=== PATIENT | female | born 1965 | race Caucasian/White ===

== ENCOUNTER 2016-09-06 13:04 | Emergency (ER) | payer MEDICARE, OTHER ==
[~2016-09-06 13:04] MED LIST: ACETAMINOPHEN PO; ALBUTEROL17 GM INH; ALPRAZOLAM PO; ALPRAZOLAM1 MG PO; AMBIEN10 MG PO; AMOXICILLIN PO; AMOXICILLIN500 M1 PO; ASPIRIN ENTERI325 M1 PO; ATARAX PO; ATORVASTATIN CA80 MG PO; AUGMENTIN PO; AZATHIOPRINE50 M1 PO; AZATHIOPRINE50 M2 PO; BENADRYL PO; CEROVITE SILVER1 TA1 PO; CIPRO PO; CLINDAMYCIN HC300 MG PO; COLACE PO; COMBIVENT U/D3 ML INH; COUMADIN; COUMADIN PO; COUMADIN10 MG PO; COUMADIN5 MG PO; COUMADIN7.5 MG PO; DERMACORT1 GM; DOXYCYCLINE PO; DOXYCYCLINE150 MG PO; ELIMITE60 G1; ELIMITE60 GM TOP; ENOXAPARIN120 MG/0.1 SQ; FERRO-TIME325 MG PO; FLUOXETINE HCL20 M1 PO; GLUCOTROL PO; GLUCOTROL XL PO; HYDROCODON-ACE1 EAC5 PO; IMURAN50 MG PO; KCL; KEFLEX PO; KEFLEX500 M1 PO; KLOR-CON PO; LANTUS100 U/ML; LASIX; LASIX PO; LEVOTHROID75 MCG PO; LEVOTHYROXINE75 MCG PO; LEVOXYL PO; LIPITOR PO; LIPITOR80 MG PO; LISINOPRIL10 MG PO; LOPID600 MG PO; LORTAB 10-3251 EACH PO; LORTAB 10/500 T1 TAB PO; LORTAB 5/500 TA1 TA1 PO; LORTAB 7.5-5001 TAB PO; LORTAB ELIXIR15 ML PO; LOTRISONE CREAM45 GM TOP; MEDROL PO; MEPERIDINE HCL50 MG PO; MICRO-K10 MEQ PO; MUCINEX DM1 TAB.SR . PO; NORCO 10/3251 TAB PO; NORVASC; NORVASC PO; NORVASC10 MG PO; OMEPRAZOLE20 M1 PO; OMEPRAZOLE20 M2 PO; PEN-VEE K PO; PENICILLIN VK PO; PERCOCET 51 UDTAB 5/ PO; PHENERGAN25 MG PO; POTASSIUM CHLO10 ME1 PO; POTASSIUM CHLO10 MEQ PO; PREDNISONE; PREDNISONE PO; PROAIR HFA8.5 GM IH; PROAIR HFA8.5 GM INH; PROZAC; PROZAC PO; ROBAXIN 750750 MG PO; SYMBICORT INH; SYNTHROID PO; TAGAMET; TRAZODONE PO; ULTRAM PO; VITAMIN B-121000 MCG PO; VITAMIN B122500 MCG PO; XANAX1 MG PO; XANAX2 MG PO; XYZAL; XYZAL PO; ZANTAC PO; ZESTRIL10 MG PO; ZITHROMAX PO; ZOFRAN PO; ZOFRANODT PO
[2016-09-06] MEDS ORDERED: LOVENOX100 MG/1 M (13:20)
[2016-09-06] MEDS ORDERED: IMURAN50 MG PO (13:21)
[2016-09-06] MEDS ORDERED: OMEPRAZOLE20 M2 PO (13:21)
[2016-09-06] MEDS ORDERED: ATORVASTATIN CA80 MG PO (13:21)
[2016-09-06] MEDS ORDERED: SYNTHROID75 MCG PO (13:21)
[2016-09-06] MEDS ORDERED: [UNRECOGNIZED DRUG - OTHER] (13:21)
[2016-09-06] MEDS ORDERED: SARAFEM20 MG PO (13:22)
[2016-09-06] MEDS ORDERED: POTASSIUM PO (13:22)
[2016-09-06] MEDS ORDERED: SYMBICORT80 INH (13:22)
[2016-09-06] MEDS ORDERED: COUMADIN PO (13:22)
[2016-09-06] MEDS ORDERED: VITAMIN D PO (13:23)
[2016-09-06] MEDS ORDERED: VITAMIN B 12 PO (13:23)
[2016-09-06] MEDS ORDERED: PROAIR HFA8.5 GM INH (13:23)
== END 2016-09-06 14:37 | disposition home or self-care (01) ==
LOC: SED 13:04
DX: H66.92 Otitis media, unspecified, left ear (principal); J02.9 Acute pharyngitis, unspecified; E11.9 Type 2 diabetes mellitus without complications; J44.9 Chronic obstructive pulmonary disease, unspecified; F17.210 Nicotine dependence, cigarettes, uncomplicated; Z86.73 Personal history of transient ischemic attack (TIA), and cerebral infarction without residual deficits; Z85.850 Personal history of malignant neoplasm of thyroid; Z85.72 Personal history of non-Hodgkin lymphomas; Z88.2 Allergy status to sulfonamides; Z79.899 Other long term (current) drug therapy
CPT/HCPCS: 87651; 99283

== ENCOUNTER 2016-11-26 22:04 | Emergency (ER) | payer MEDICARE, OTHER ==
[~2016-11-26] VITALS: Ht 170.2 cm; Wt 137.9 kg
[~2016-11-26 22:04] MED LIST changes: +LOVENOX100 MG/1 M; +POTASSIUM PO; +SARAFEM20 MG PO; +SYMBICORT80 INH; +SYNTHROID75 MCG PO; +VITAMIN B 12 PO; +VITAMIN D PO; +[UNRECOGNIZED DRUG - OTHER]
== END 2016-11-27 00:48 | disposition home or self-care (01) ==
LOC: SED 22:04
DX: G56.02 Carpal tunnel syndrome, left upper limb (principal); E11.9 Type 2 diabetes mellitus without complications; F17.200 Nicotine dependence, unspecified, uncomplicated; Z86.73 Personal history of transient ischemic attack (TIA), and cerebral infarction without residual deficits; Z79.01 Long term (current) use of anticoagulants; Z79.899 Other long term (current) drug therapy; Z88.2 Allergy status to sulfonamides
CPT/HCPCS: 29125; 99283